=== PATIENT | female | born 1955 | race Caucasian/White ===

== ENCOUNTER 2016-11-25 15:44 | Inpatient (IN) | payer MEDICARE ==
[~2016-11-25] VITALS: Ht 170.2 cm; Wt 71.8 kg
[~2016-11-25 15:44] MED LIST: BACITRACIN 50,000 UNITS INJ IRRIG ONE; FENTANYL 100 MCG/2 ML AMP IV ONE; GLYCOPYRROLATE 0.2 MG/ML VIAL IV ONE; LIDOCAINE 2% SYR 5 ML IV ONE; NEOSTIGMINE 10 MG/10 ML VIAL IV ONE; PROPOFOL 20 ML PER ML IV ONE; ROCURONIUM 50 MG VIAL IV ONE; SUCCINYLCHOLINE 20 MG/ML VL IV ONE
[2016-11-25] MEDS ORDERED: PHARMACY TO DOSE VANCOMYCIN IV SCH (17:10)
[2016-11-25] MEDS ORDERED: BISACODYL EC 5 MG TAB PO PRN (17:10)
[2016-11-25] MEDS ORDERED: ACETAMINOPHEN 325 MG TAB PO PRN (17:10)
[2016-11-25] MEDS ORDERED: BISACODYL 10 MG SUPP RECTAL PRN (17:10)
[2016-11-25] MEDS ORDERED: PROMETHAZINE 25 MG/ML VIAL IV PRN (17:10)
[2016-11-25] MEDS ORDERED: SALINE FLUSH 10 ML FLUSH PRN (17:10)
[2016-11-25] MEDS ORDERED: ONDANSETRON 4 MG VIAL IV PRN (17:10)
[2016-11-25 17:19] VITALS: BP_SYST 128; BP_SYST 142; RESP 20; TEMP 97.4
[2016-11-25] MEDS: PANTOPRAZOLE 40 MG TAB PO SCH (17:19)
[2016-11-25 17:20] VITALS: Ht 170.2 cm; Wt 71.8 kg
[2016-11-25] MEDS ORDERED: VANCOMYCIN 1,500 MG in SODIUM CHLORIDE 0.9% 250 ML IV ONE (17:35)
[2016-11-25] MEDS: NICOTINE 21 MG/24 HR TRANSDERM PRN (17:47)
[2016-11-25] MEDS: ASPIRIN 81 MG CHEW TAB PO SCH (17:47)
[2016-11-25] MEDS: PIPERACIL/TAZO 3.375GM/50ML 50 ML IV SCH (17:48)
[2016-11-25] MEDS: Hydrocodone/APAP 10/325 MG TAB PO PRN (18:55)
[2016-11-25 19:09] VITALS: BP_SYST 102; RESP 18; TEMP 97.4
[2016-11-25] MEDS ORDERED: MISSING DOSE XX ONE (21:10)
[2016-11-25] MEDS: SALINE FLUSH 10 ML FLUSH SCH (21:26)
[2016-11-25] MEDS: Carvedilol 3.125 MG TAB PO SCH (21:27)
[2016-11-25] MEDS: MORPHINE ER 30 MG TAB PO SCH (21:27)
[2016-11-25] MEDS: Atorvastatin 40 MG TAB PO SCH (21:48)
[2016-11-26] VITALS (20 sets, daily range): BP systolic 82–124; RESP 16–18; TEMP 96.7–99.6
[2016-11-26] MEDS: PIPERACIL/TAZO 3.375GM/50ML 50 ML IV SCH ×4 (00:39→17:55)
[2016-11-26] MEDS: PANTOPRAZOLE 40 MG TAB PO SCH (04:02)
[2016-11-26] MEDS: Hydrocodone/APAP 10/325 MG TAB PO PRN ×2 (04:02→13:22)
[2016-11-26] MEDS: LEVOTHYROXINE 0.125 MG TAB PO SCH (04:02)
[2016-11-26] MEDS: SODIUM CHLORIDE 0.9% FLUSH BAG 500 ML IV SCH (04:04)
[2016-11-26] MEDS ORDERED: LACT RINGERS 1,000 ML IV SCH (07:30)
[2016-11-26] MEDS ORDERED: MIDAZOLAM 2 MG/2 ML INJ IV ONE (07:30)
[2016-11-26] MEDS ORDERED: GLYCOPYRROLATE 0.2 MG/ML VIAL IV ONE ×2 (07:30→13:41)
[2016-11-26] MEDS ORDERED: LIDOCAINE 1% BUFFERED 1 ML SYR INTRADERM PRN (07:30)
[2016-11-26] MEDS ORDERED: VANCOMYCIN 750 MG in SODIUM CHLORIDE 0.9% 250 ML IV SCH (08:00)
[2016-11-26] MEDS: SALINE FLUSH 10 ML FLUSH SCH ×2 (08:19→20:31)
[2016-11-26] MEDS ORDERED: DILAUDID 1 MG/ML AMP IV PRN (08:50)
[2016-11-26] MEDS ORDERED: OXYCODONE 5 MG TAB PO PRN (08:50)
[2016-11-26] MEDS ORDERED: ONDANSETRON 4 MG VIAL IV PRN (08:50)
[2016-11-26] MEDS ORDERED: MEPERIDINE 25 MG/ML IV PRN (08:50)
[2016-11-26] MEDS ORDERED: MORPHINE 2 MG/ML SYR IV PRN (08:50)
[2016-11-26] MEDS ORDERED: MORPHINE 4 MG/ML SYR IV PRN (08:50)
[2016-11-26] MEDS ORDERED: LORAZEPAM 2 MG/ML VIAL IV ONE (11:35)
[2016-11-26] MEDS: CLOPIDOGREL 75 MG TAB PO SCH (11:46)
[2016-11-26] MEDS: ASPIRIN 81 MG CHEW TAB PO SCH (11:46)
[2016-11-26] MEDS: Carvedilol 6.25 MG TAB PO SCH (11:48)
[2016-11-26] MEDS: MORPHINE ER 30 MG TAB PO SCH ×2 (11:48→20:31)
[2016-11-26] MEDS: MORPHINE 2 MG/ML SYR IV PRN (11:53)
[2016-11-26] MEDS ORDERED: FENTANYL 100 MCG/2 ML AMP IV ONE (13:41)
[2016-11-26] MEDS ORDERED: ROCURONIUM 50 MG VIAL IV ONE (13:41)
[2016-11-26] MEDS ORDERED: NEOSTIGMINE 10 MG/10 ML VIAL IV ONE (13:41)
[2016-11-26] MEDS ORDERED: LIDOCAINE 2% SYR 5 ML IV ONE (13:41)
[2016-11-26] MEDS ORDERED: PROPOFOL 20 ML PER ML IV ONE (13:41)
[2016-11-26] MEDS ORDERED: DILAUDID 1 MG/ML AMP IV ONE (13:41)
[2016-11-26] MEDS ORDERED: ONDANSETRON 4 MG VIAL IV PUSH ONE (13:41)
[2016-11-26] MEDS ORDERED: SODIUM CHLORIDE 0.9% 1,000 ML IV SCH ×2 (14:35→17:15)
[2016-11-26] MEDS ORDERED: SODIUM CHLORIDE 0.9% 500 ML IV ONE (17:15)
[2016-11-26] MEDS: Carvedilol 3.125 MG TAB PO SCH (17:55)
[2016-11-26] MEDS ORDERED: VANCOMYCIN 1,250 MG in SODIUM CHLORIDE 0.9% 250 ML IV SCH (19:00)
[2016-11-26] MEDS: Atorvastatin 40 MG TAB PO SCH (20:29)
[2016-11-26] MEDS: MORPHINE 4 MG/ML SYR IV PRN (22:00)
[2016-11-27] VITALS (10 sets, daily range): BP systolic 90–132; RESP 18–20; TEMP 98.2–99.5
[2016-11-27] MEDS: PIPERACIL/TAZO 3.375GM/50ML 50 ML IV SCH ×4 (01:00→16:51)
[2016-11-27] MEDS: MORPHINE 4 MG/ML SYR IV PRN (03:22)
[2016-11-27] MEDS: Hydrocodone/APAP 10/325 MG TAB PO PRN (04:41)
[2016-11-27] MEDS: SODIUM CHLORIDE 0.9% FLUSH BAG 500 ML IV SCH (06:00)
[2016-11-27] MEDS: LEVOTHYROXINE 0.125 MG TAB PO SCH (07:06)
[2016-11-27] MEDS: PANTOPRAZOLE 40 MG TAB PO SCH (07:06)
[2016-11-27] MEDS: SALINE FLUSH 10 ML FLUSH SCH ×2 (08:00→20:06)
[2016-11-27] MEDS: CLOPIDOGREL 75 MG TAB PO SCH (08:45)
[2016-11-27] MEDS: Carvedilol 6.25 MG TAB PO SCH (08:45)
[2016-11-27] MEDS: ASPIRIN 81 MG CHEW TAB PO SCH (08:45)
[2016-11-27] MEDS: MORPHINE ER 30 MG TAB PO SCH ×2 (08:50→20:07)
[2016-11-27] MEDS: VANCOMYCIN 1,000 MG in SODIUM CHLORIDE 0.9% 250 ML IV SCH ×2 (08:51→20:06)
[2016-11-27] MEDS: LORAZEPAM 2 MG/ML VIAL ONE ×2 (09:19→09:25)
[2016-11-27] MEDS: Carvedilol 3.125 MG TAB PO SCH (16:51)
[2016-11-27] MEDS ORDERED: PROMETHAZINE 25 MG/ML VIAL IV PRN (17:10)
[2016-11-27] MEDS: Atorvastatin 40 MG TAB PO SCH (20:07)
[2016-11-28] VITALS (8 sets, daily range): BP systolic 118–140; RESP 16–20; TEMP 97.6–99.2
[2016-11-28] MEDS: PIPERACIL/TAZO 3.375GM/50ML 50 ML IV SCH ×4 (00:52→17:18)
[2016-11-28] MEDS: SODIUM CHLORIDE 0.9% FLUSH BAG 500 ML IV SCH (05:16)
[2016-11-28] MEDS: LEVOTHYROXINE 0.125 MG TAB PO SCH (05:16)
[2016-11-28] MEDS: PANTOPRAZOLE 40 MG TAB PO SCH (05:16)
[2016-11-28] MEDS: MORPHINE 4 MG/ML SYR IV PRN (05:17)
[2016-11-28] MEDS: SALINE FLUSH 10 ML FLUSH SCH ×2 (08:00→20:00)
[2016-11-28] MEDS: VANCOMYCIN 1,000 MG in SODIUM CHLORIDE 0.9% 250 ML IV SCH ×2 (08:00→20:00)
[2016-11-28] MEDS: CLOPIDOGREL 75 MG TAB PO SCH (09:14)
[2016-11-28] MEDS: Carvedilol 6.25 MG TAB PO SCH (09:14)
[2016-11-28] MEDS: MORPHINE ER 30 MG TAB PO SCH ×2 (09:14→20:00)
[2016-11-28] MEDS: ASPIRIN 81 MG CHEW TAB PO SCH (09:14)
[2016-11-28] MEDS: NICOTINE 21 MG/24 HR TRANSDERM PRN (09:15)
[2016-11-28] MEDS ORDERED: KETOROLAC 15 MG/ML VIAL IV PRN (10:55)
[2016-11-28] MEDS ORDERED: DOCUSATE SOD 100 MG CAP PO PRN (12:40)
[2016-11-28] MEDS ORDERED: POLYETHYLENE GLYCOL 17 GM PACKET PO PRN (12:40)
[2016-11-28] MEDS: MORPHINE 2 MG/ML SYR IV PRN (14:27)
[2016-11-28] MEDS ORDERED: MISSING DOSE XX ONE ×2 (15:15)
[2016-11-28] MEDS: Carvedilol 3.125 MG TAB PO SCH (16:30)
[2016-11-28] MEDS: Hydrocodone/APAP 10/325 MG TAB PO PRN (16:30)
[2016-11-28] MEDS: GABAPENTIN 100 MG CAP PO SCH ×2 (16:30→20:00)
[2016-11-28] MEDS: Atorvastatin 40 MG TAB PO SCH (20:00)
[2016-11-29] VITALS (12 sets, daily range): BP systolic 122–150; RESP 16–18; TEMP 97.9–99
[2016-11-29] MEDS: PIPERACIL/TAZO 3.375GM/50ML 50 ML IV SCH ×5 (00:18→23:54)
[2016-11-29] MEDS: MORPHINE 4 MG/ML SYR IV PRN ×3 (02:17→23:25)
[2016-11-29] MEDS: Hydrocodone/APAP 10/325 MG TAB PO PRN (03:55)
[2016-11-29] MEDS: PANTOPRAZOLE 40 MG TAB PO SCH (06:09)
[2016-11-29] MEDS: SODIUM CHLORIDE 0.9% FLUSH BAG 500 ML IV SCH (06:09)
[2016-11-29] MEDS: LEVOTHYROXINE 0.125 MG TAB PO SCH (06:09)
[2016-11-29] MEDS: SALINE FLUSH 10 ML FLUSH SCH ×2 (08:00→21:49)
[2016-11-29] MEDS: MORPHINE ER 30 MG TAB PO SCH ×2 (10:01→21:48)
[2016-11-29] MEDS: CLOPIDOGREL 75 MG TAB PO SCH (10:01)
[2016-11-29] MEDS: GABAPENTIN 100 MG CAP PO SCH ×3 (10:02→21:48)
[2016-11-29] MEDS: ASPIRIN 81 MG CHEW TAB PO SCH (10:02)
[2016-11-29] MEDS: Carvedilol 6.25 MG TAB PO SCH (10:02)
[2016-11-29] MEDS: Carvedilol 3.125 MG TAB PO SCH (17:04)
[2016-11-29] MEDS: Atorvastatin 40 MG TAB PO SCH (21:48)
[2016-11-29] MEDS: VANCOMYCIN 1,000 MG in SODIUM CHLORIDE 0.9% 250 ML IV SCH (21:49)
[2016-11-29] MEDS: NICOTINE 21 MG/24 HR TRANSDERM PRN (21:55)
[2016-11-29] MEDS ORDERED: MISSING DOSE XX ONE (23:35)
[2016-11-30] MEDS: Hydrocodone/APAP 10/325 MG TAB PO PRN ×2 (02:37→13:11)
[2016-11-30] MEDS: MORPHINE 4 MG/ML SYR IV PRN ×3 (04:08→16:35)
[2016-11-30 04:14] VITALS: BP_SYST 120; RESP 18; TEMP 98.8
[2016-11-30] MEDS: SODIUM CHLORIDE 0.9% FLUSH BAG 500 ML IV SCH (05:14)
[2016-11-30] MEDS: PANTOPRAZOLE 40 MG TAB PO SCH (05:14)
[2016-11-30] MEDS: LEVOTHYROXINE 0.125 MG TAB PO SCH (05:14)
[2016-11-30] MEDS: PIPERACIL/TAZO 3.375GM/50ML 50 ML IV SCH ×4 (05:14→23:49)
[2016-11-30 07:37] VITALS: BP_SYST 128; RESP 20; TEMP 98.2
[2016-11-30] MEDS: MORPHINE ER 30 MG TAB PO SCH ×2 (08:45→20:30)
[2016-11-30] MEDS: ASPIRIN 81 MG CHEW TAB PO SCH (08:45)
[2016-11-30] MEDS: GABAPENTIN 100 MG CAP PO SCH ×3 (08:45→20:29)
[2016-11-30] MEDS: CLOPIDOGREL 75 MG TAB PO SCH (08:45)
[2016-11-30] MEDS: Carvedilol 6.25 MG TAB PO SCH (08:46)
[2016-11-30] MEDS: SALINE FLUSH 10 ML FLUSH SCH ×2 (08:47→19:42)
[2016-11-30 11:05] VITALS: BP_SYST 158; RESP 20; TEMP 98.3
[2016-11-30 15:46] VITALS: BP_SYST 142; RESP 16; TEMP 98.8
[2016-11-30] MEDS: Carvedilol 3.125 MG TAB PO SCH (16:35)
[2016-11-30] MEDS: VANCOMYCIN 1,000 MG in SODIUM CHLORIDE 0.9% 250 ML IV SCH (19:42)
[2016-11-30 20:21] VITALS: BP_SYST 140; RESP 18; TEMP 98.8
[2016-11-30] MEDS: Atorvastatin 40 MG TAB PO SCH (20:29)
[2016-11-30] MEDS: MORPHINE 2 MG/ML SYR IV PRN (21:16)
[2016-11-30 23:11] VITALS: BP_SYST 160; RESP 18; TEMP 98.8
[2016-11-30] MEDS ORDERED: GLYCOPYRROLATE 0.2 MG/ML VIAL IV ONE (23:15)
[2016-11-30] MEDS ORDERED: LACT RINGERS 1,000 ML IV SCH (23:15)
[2016-11-30] MEDS ORDERED: MIDAZOLAM 2 MG/2 ML INJ IV ONE (23:15)
[2016-12-01] VITALS (29 sets, daily range): BP systolic 72–152; RESP 16–24; TEMP 97.1–99.7
[2016-12-01] MEDS: PIPERACIL/TAZO 3.375GM/50ML 50 ML IV SCH ×5 (05:07→23:13)
[2016-12-01] MEDS: SODIUM CHLORIDE 0.9% FLUSH BAG 500 ML IV SCH (05:08)
[2016-12-01] MEDS: PANTOPRAZOLE 40 MG TAB PO SCH (06:24)
[2016-12-01] MEDS: LEVOTHYROXINE 0.125 MG TAB PO SCH (06:24)
[2016-12-01] MEDS: Carvedilol 6.25 MG TAB PO SCH (06:24)
[2016-12-01] MEDS: MORPHINE ER 30 MG TAB PO SCH ×3 (07:35→20:10)
[2016-12-01] MEDS ORDERED: MIDAZOLAM 2 MG/2 ML INJ ONE (07:52)
[2016-12-01] MEDS: SALINE FLUSH 10 ML FLUSH SCH ×2 (08:00→19:34)
[2016-12-01] MEDS: GABAPENTIN 100 MG CAP PO SCH ×3 (08:55→20:09)
[2016-12-01] MEDS ORDERED: ONDANSETRON 4 MG VIAL IV PRN (09:15)
[2016-12-01] MEDS ORDERED: MORPHINE 4 MG/ML SYR IV PRN (09:15)
[2016-12-01] MEDS ORDERED: MORPHINE 2 MG/ML SYR IV PRN (09:15)
[2016-12-01] MEDS ORDERED: OXYCODONE 5 MG TAB PO PRN (09:15)
[2016-12-01] MEDS ORDERED: MEPERIDINE 25 MG/ML IV PRN (09:15)
[2016-12-01] MEDS: DILAUDID 1 MG/ML AMP IV PRN ×2 (10:08→10:51)
[2016-12-01] MEDS ORDERED: KETOROLAC 30 MG/ML VIAL IM ONE (11:15)
[2016-12-01] MEDS: D5-1/2-NS W/KCL 20MEQ/L 1,000 ML IV SCH (12:10)
[2016-12-01] MEDS: MORPHINE 4 MG/ML SYR IV PRN (12:13)
[2016-12-01] MEDS: ASPIRIN 81 MG CHEW TAB PO SCH (13:24)
[2016-12-01] MEDS: MORPHINE 2 MG/ML SYR IV PRN ×2 (14:43→22:21)
[2016-12-01] MEDS: NICOTINE 21 MG/24 HR TRANSDERM PRN (17:48)
[2016-12-01] MEDS: Carvedilol 3.125 MG TAB PO SCH (17:49)
[2016-12-01] MEDS: Hydrocodone/APAP 10/325 MG TAB PO PRN (17:50)
[2016-12-01] MEDS: Atorvastatin 40 MG TAB PO SCH (20:09)
[2016-12-01] MEDS: VANCOMYCIN 1,000 MG in SODIUM CHLORIDE 0.9% 250 ML IV SCH (20:10)
[2016-12-02] VITALS (16 sets, daily range): BP systolic 84–132; RESP 16–20; TEMP 98.6–99.5
[2016-12-02] MEDS: D5-1/2-NS W/KCL 20MEQ/L 1,000 ML IV SCH (04:21)
[2016-12-02] MEDS: SODIUM CHLORIDE 0.9% FLUSH BAG 500 ML IV SCH (06:00)
[2016-12-02] MEDS: PANTOPRAZOLE 40 MG TAB PO SCH (06:26)
[2016-12-02] MEDS: LEVOTHYROXINE 0.125 MG TAB PO SCH (06:26)
[2016-12-02] MEDS: PIPERACIL/TAZO 3.375GM/50ML 50 ML IV SCH ×2 (06:26→12:04)
[2016-12-02] MEDS: MORPHINE 2 MG/ML SYR IV PRN (06:27)
[2016-12-02] MEDS: SALINE FLUSH 10 ML FLUSH SCH ×2 (08:00→20:00)
[2016-12-02] MEDS: GABAPENTIN 100 MG CAP PO SCH ×3 (08:09→20:03)
[2016-12-02] MEDS: MORPHINE ER 30 MG TAB PO SCH ×2 (08:09→20:03)
[2016-12-02] MEDS: ASPIRIN 81 MG CHEW TAB PO SCH (08:10)
[2016-12-02] MEDS: Carvedilol 6.25 MG TAB PO SCH (08:15)
[2016-12-02] MEDS: Hydrocodone/APAP 10/325 MG TAB PO PRN ×2 (10:52→18:36)
[2016-12-02] MEDS: MORPHINE 4 MG/ML SYR IV PRN (14:52)
[2016-12-02] MEDS: Carvedilol 3.125 MG TAB PO SCH (16:43)
[2016-12-02] MEDS: VANCOMYCIN 1,000 MG in SODIUM CHLORIDE 0.9% 250 ML IV SCH (20:03)
[2016-12-02] MEDS: Atorvastatin 40 MG TAB PO SCH (20:03)
[2016-12-03] VITALS (7 sets, daily range): BP systolic 126–154; RESP 18–20; TEMP 98.4–99.2
[2016-12-03] MEDS: D5-1/2-NS W/KCL 20MEQ/L 1,000 ML IV SCH (01:38)
[2016-12-03] MEDS: LEVOTHYROXINE 0.125 MG TAB PO SCH (06:03)
[2016-12-03] MEDS: PANTOPRAZOLE 40 MG TAB PO SCH (06:03)
[2016-12-03] MEDS: Hydrocodone/APAP 10/325 MG TAB PO PRN (06:05)
[2016-12-03] MEDS: SODIUM CHLORIDE 0.9% FLUSH BAG 500 ML IV SCH (07:08)
[2016-12-03] MEDS: SALINE FLUSH 10 ML FLUSH SCH ×2 (08:00→21:00)
[2016-12-03] MEDS: MORPHINE ER 30 MG TAB PO SCH ×2 (08:55→21:13)
[2016-12-03] MEDS: ASPIRIN 81 MG CHEW TAB PO SCH (08:55)
[2016-12-03] MEDS: Carvedilol 6.25 MG TAB PO SCH (08:55)
[2016-12-03] MEDS: GABAPENTIN 100 MG CAP PO SCH ×3 (08:55→21:12)
[2016-12-03] MEDS: MORPHINE 4 MG/ML SYR IV PRN ×2 (12:12→17:24)
[2016-12-03] MEDS: Carvedilol 3.125 MG TAB PO SCH (17:05)
[2016-12-03] MEDS: NICOTINE 21 MG/24 HR TRANSDERM PRN (17:23)
[2016-12-03] MEDS: Atorvastatin 40 MG TAB PO SCH (21:12)
[2016-12-04] VITALS (11 sets, daily range): BP systolic 124–164; RESP 16–20; TEMP 98.3–99.4
[2016-12-04] MEDS: SODIUM CHLORIDE 0.9% FLUSH BAG 500 ML IV SCH (05:08)
[2016-12-04] MEDS: MORPHINE 4 MG/ML SYR IV PRN (05:09)
[2016-12-04] MEDS: LEVOTHYROXINE 0.125 MG TAB PO SCH (06:32)
[2016-12-04] MEDS: PANTOPRAZOLE 40 MG TAB PO SCH (06:32)
[2016-12-04] MEDS: Carvedilol 6.25 MG TAB PO SCH (08:48)
[2016-12-04] MEDS: ASPIRIN 81 MG CHEW TAB PO SCH (08:48)
[2016-12-04] MEDS: GABAPENTIN 100 MG CAP PO SCH ×3 (08:48→20:06)
[2016-12-04] MEDS: MORPHINE ER 30 MG TAB PO SCH ×2 (08:50→20:07)
[2016-12-04] MEDS: SALINE FLUSH 10 ML FLUSH SCH ×2 (08:51→20:06)
[2016-12-04] MEDS: MICONAZOLE 2% CR 28 GM TOPICAL SCH ×2 (16:46→20:13)
[2016-12-04] MEDS: Carvedilol 3.125 MG TAB PO SCH (16:48)
[2016-12-04] MEDS: Atorvastatin 40 MG TAB PO SCH (20:06)
[2016-12-05] VITALS (10 sets, daily range): BP systolic 110–160; RESP 16–20; TEMP 98.9–99.6
[2016-12-05] MEDS: SODIUM CHLORIDE 0.9% FLUSH BAG 500 ML IV SCH (05:36)
[2016-12-05] MEDS: MORPHINE 4 MG/ML SYR IV PRN (05:52)
[2016-12-05] MEDS: LEVOTHYROXINE 0.125 MG TAB PO SCH (05:53)
[2016-12-05] MEDS: PANTOPRAZOLE 40 MG TAB PO SCH (05:53)
[2016-12-05] MEDS: FOLIC ACID 1 MG TAB PO SCH (09:15)
[2016-12-05] MEDS: GABAPENTIN 100 MG CAP PO SCH ×3 (09:15→20:26)
[2016-12-05] MEDS: [UNRECOGNIZED DRUG - OTHER] PO SCH (09:15)
[2016-12-05] MEDS: ESCITALOPRAM 10 MG TAB PO SCH (09:16)
[2016-12-05] MEDS: ASPIRIN 81 MG CHEW TAB PO SCH (09:16)
[2016-12-05] MEDS: Carvedilol 6.25 MG TAB PO SCH (09:16)
[2016-12-05] MEDS: LISINOPRIL 20 MG TAB PO SCH (09:16)
[2016-12-05] MEDS: MORPHINE ER 30 MG TAB PO SCH ×2 (09:18→20:26)
[2016-12-05] MEDS: SALINE FLUSH 10 ML FLUSH SCH ×2 (09:19→20:27)
[2016-12-05] MEDS: MICONAZOLE 2% CR 28 GM TOPICAL SCH ×2 (09:22→20:27)
[2016-12-05] MEDS: Carvedilol 3.125 MG TAB PO SCH (17:29)
[2016-12-05] MEDS: Atorvastatin 40 MG TAB PO SCH (20:24)
[2016-12-06] VITALS (10 sets, daily range): BP systolic 130–152; RESP 18–20; TEMP 98.7–99.4
[2016-12-06] MEDS: SODIUM CHLORIDE 0.9% FLUSH BAG 500 ML IV SCH (02:54)
[2016-12-06] MEDS: LEVOTHYROXINE 0.125 MG TAB PO SCH (05:59)
[2016-12-06] MEDS: PANTOPRAZOLE 40 MG TAB PO SCH (05:59)
[2016-12-06] MEDS: Hydrocodone/APAP 10/325 MG TAB PO PRN (07:26)
[2016-12-06] MEDS: GABAPENTIN 100 MG CAP PO SCH (08:44)
[2016-12-06] MEDS: LISINOPRIL 20 MG TAB PO SCH (08:44)
[2016-12-06] MEDS: Carvedilol 6.25 MG TAB PO SCH (08:44)
[2016-12-06] MEDS: FOLIC ACID 1 MG TAB PO SCH (08:44)
[2016-12-06] MEDS: ASPIRIN 81 MG CHEW TAB PO SCH (08:44)
[2016-12-06] MEDS: [UNRECOGNIZED DRUG - OTHER] PO SCH (08:44)
[2016-12-06] MEDS: ESCITALOPRAM 10 MG TAB PO SCH (08:44)
[2016-12-06] MEDS: MICONAZOLE 2% CR 28 GM TOPICAL SCH (08:45)
[2016-12-06] MEDS: MORPHINE ER 30 MG TAB PO SCH (08:45)
[2016-12-06] MEDS: SALINE FLUSH 10 ML FLUSH SCH (08:46)
== END 2016-12-06 11:45 | DRG 240 ==
LOC: ENRESERVDT → ENRESERVTM → ENPENDDIS 16:19 → 4NT 16:19 → DELPENDDIS 16:19
PROVIDERS: ADMIT Family Medicine; ATTEND Family Medicine
PROC: 0Y6H0Z2 Detachment at Right Lower Leg, Mid, Open Approach (ICD-10-PCS; principal; 2016-11-26 08:47)
PROC: 0Y6C0Z2 Detachment at Right Upper Leg, Mid, Open Approach (ICD-10-PCS; 2016-12-01)
CPT/HCPCS: 36415; 36430; 80048; 80053; 80202; 81001; 82565; 82607; 82746; 84520; 85014; 85018; 85025; 85610; 85730; 86850; 86900; 86901; 86923; 86945; 87040; 87088; 88307; 88311; 99223; 99232; 99233; 99239